=== PATIENT | male | born 1985 | race African-American/Black ===

== ENCOUNTER 2019-03-16 15:13 | Emergency (ER) | payer OTHER ==
[~2019-03-16] VITALS: Ht 188 cm; Wt 93.4 kg
[2019-03-16 16:43] VITALS: BP 132/68
== END 2019-03-16 16:30 | disposition home or self-care (01) ==
LOC: ER 15:13
DX: F10.129 Alcohol abuse with intoxication, unspecified (principal); F17.210 Nicotine dependence, cigarettes, uncomplicated; Z63.0 Problems in relationship with spouse or partner

== ENCOUNTER 2019-03-16 20:16 | Emergency (ER) | payer OTHER ==
[~2019-03-16] VITALS: Ht 188 cm; Wt 93.9 kg
[2019-03-16 21:28] LABS: ABSOLUTE NEUTROPHILS 6.8 thou/uL (1.4-8.2); EOSINOPHILS 2.1 % (0.0-3.0); HEMATOCRIT 47.7 % (42.0-52.0); HEMOGLOBIN 15.9 gm/dL (14.0-18.0); LYMPHOCYTES 34.3 % (24.0-44.0); MCH 31.9 pg (26.0-34.0); MCHC 33.3 g/dL (28.0-37.0); MCV 95.9 fL (80.0-100.0); MONOCYTES 6.8 % (1.0-8.0); PLATELET COUNT 274 thou/uL (150-400); POLYS 55.8 % (36.0-66.0); RBC 4.97 mil/uL (4.50-6.00); RDW 13.7 % (10.5-14.5); WBC 12.2 thou/uL (4.0-11.0)
[2019-03-16 21:31] LABS: CREATININE 1.1 mg/dL (0.7-1.3); POTASSIUM 3.8 mmol/L (3.5-5.1)
[2019-03-16 21:37] LABS: ALBUMIN 4.3 g/dL (3.4-5.0); TOTAL BILIRUBIN 0.4 mg/dL (<0.1-1.0); TOTAL PROTEIN 8.1 g/dL (6.4-8.2)
[2019-03-16 22:31] LABS: URINE BILIRUBIN NEGATIVE (Negative); URINE BLOOD NEGATIVE (Negative); URINE CLARITY CLEAR; URINE COLOR YELLOW; URINE GLUCOSE-RANDOM* NEGATIVE (Negative); URINE KETONES NEGATIVE (Negative); URINE LEUKOCYTES-REFLEX NEGATIVE (Negative); URINE NITRITE-REFLEX NEGATIVE (Negative); URINE PROTEIN (DIPSTICK) NEGATIVE (Negative); URINE UROBILINOGEN 0.2 E.U./dl (0.2-1.0)
[2019-03-16 22:41] LABS: AMP/METHAMP Negative (Negative); BARBITURATES Negative (Negative); BENZODIAZEPINES Negative (Negative); COCAINE Negative (Negative); METHADONE Negative (Negative); OPIATES Negative (Negative); PCP Negative (Negative)
[2019-03-17 03:08] VITALS: BP 138/88
== END 2019-03-17 03:05 | disposition home or self-care (01) ==
LOC: ER 20:16
PROVIDERS: Physician Assistant
DX: F10.129 Alcohol abuse with intoxication, unspecified (principal); F17.210 Nicotine dependence, cigarettes, uncomplicated